=== PATIENT | male | born 1970 | race Caucasian/White ===

== ENCOUNTER 2016-05-26 10:14 | Inpatient (IN) ==
--- NOTE | 2016-05-26 11:57 | General Surg History&Physical ---
Date of Encounter: 05/26/16 Time of Encounter: 11:50 Assessment and Plan (1) Abnormal abdominal CT scan Current Visit: Yes Status: Acute The assessment and plan as outlined above was discussed with the patient and/or family members who expressed understanding and agreement. All questions were answered. The patient has acute abdomen associated with CAT scan findings of closed loop bowel obstruction with possible small bowel necrosis plan we will take him to the operating room on an emergent basis. We will plan exploratory laparotomy with possible small bowel resection. History of Present Illness Chief complaint: Severe abdominal pain HPI: Mr. Guerra is a 45 year old male Acute onset abdominal pain this morning. He has never had a pain episode like this. He has not previously had abdominal surgery. Soon after the onset of acute abdominal pain he developed profound nausea and vomiting. He sought evaluation in the emergency department. A CAT scan was obtained and demonstrated a closed loop obstruction of the small bowel with prominent edema in the closed loop segment. Findings are consistent with bowel necrosis or high -grade obstruction with vascular obstruction. He presents for emergent exploratory laparotomy. Past Med Surg Social Fam HX - Past Medical History Medical history: diabetes, hyperlipidemia Psychiatric history: no psych history - Past Surgical History Surgical History: no surgical history - Social History Smoking Status: Current every day smoker Packs per day: 1 Smokeless Tobacco Status: No Alcohol use: none Drug use: none Medications and Allergies Metformin [Glucophage] 500 mg PO BIDWM 12/14/15 [History] Omeprazole [PriLOSEC] 20 mg PO DAILY 12/14/15 [History] HydrOXYzine Pamoate [Hydroxyzine Pamoate] 25 - 50 mg PO Q6HR PRN #20 capsule [Rx] PredniSONE 40 mg PO DAILY #10 tablet 03/20/16 [Rx] Allergies No Known Allergies Allergy (Verified 05/26/16 08:52) Review of Systems All systems PM: reviewed and no additional remarkable complaints except as stated All systems PM: A 10-system review of systems was performed and is negative for pertinent findings except as documented above in the HPI. The patient is positive for personal history of hyperglycemia and intermittent breathing problems. He does not currently have breathing problems or dyspnea he specifically denies infectious disorder such as HIV hepatitis or tuberculosis. General Surgery Exam Initial Vital Signs Temp Pulse Resp BP Pulse Ox 97.5 F L 43 16 142/91 100 05/26/16 11:35 05/26/16 11:35 02/04/17 11:35 05/26/16 11:35 05/26/16 11:35 - General physical appearance well developed, well nourished, no distress - Neck no masses, no bruits, trachea midline, no lymphadectomy, no venous distension - Respiratory normal expansion, normal respiratory effort, clear to percussion, clear to auscultation - Cardiovascular Cardiovascular exam: Present: RRR, 15, 16 - Abdomen Abdomen general surgery: Present: tender (The patient has guarding and rebound tenderness.) Abdominal Tenderness: Present: diffusely Results - Labs All other labs normal. - Imaging CT scan - abdomen: image reviewed (I personally reviewed the CAT scan. The patient has a closed loop obstruction of the mid small bowel with tremendous edema and inflammation consistent with high-grade bowel obstruction or necrosis. )
[2016-05-26] MEDS ORDERED: *HR* HYDROmorphone (PF) 1 MG/ML SYRINGE ONE (12:01)
[2016-05-26] MEDS ORDERED: *HR* HYDROmorphone (PF) 1 MG/ML SYRINGE IVP PRN (12:02)
[2016-05-26] MEDS ORDERED: Ipratropium/Albuterol Neb 3 ML IH PRN ×2 (12:03→18:06)
--- NOTE | 2016-05-26 14:13 | Anesthesia Evaluation PreOp ---
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 HX Other Medical History: Diabetes Type II, GERD Anesthesia History: Past Anesthesia (no prior surgery) Alcohol Use: none Drug use: none Medications and Allergies Metformin [Glucophage] 500 mg PO BID 12/14/15 [History] Cyclobenzaprine [Flexeril] 10 mg PO TID PRN 05/26/16 [History] Lansoprazole [Prevacid] 30 mg PO DAILY 05/26/16 [History] Lovastatin 10 mg PO DAILY 05/26/16 [History] Melatonin/Pyridoxine HCl (B6) [Melatonin 3 mg Tablet] 3 mg PO HS PRN 05/26/16 [ History] Allergies No Known Allergies Allergy (Verified 05/26/16 08:52) - Meds/Allergy Pre-op Review Medications Reviewed: Yes Allergies Reviewed: Yes Beta Blockers on Current Med List: No Anesthesia Results - Labs Laboratory Tests 05/26/16 05/26/16 09:28 09:28 WBC 20.8 H Hgb 18.7 H Hct 54.6 H Plt Count 253 Sodium 142 Potassium 3.7 BUN 18 Creatinine 1.25 - Imaging EKG: report reviewed (05/26/2016 SB, possible LAE) Anesthesia Exam Vital Signs/O2 Sat/Glucose, Most Recent Temp Pulse Resp BP Pulse Ox 97.5 F L 43 16 142/91 100 05/26/16 11:35 05/26/16 11:35 05/26/16 11:35 05/26/16 11:35 05/26/16 11:35 Blood Glucose* 111 Height: 5'7''/1.7 m Weight: 145 lbs/65.77 kg NPO (# of Hours): 8 Pain Scale: 10 Pain Scale Used: Numeric (1 - 10) - HEENT Pupil (Motor): EOMI Mallampati: II Teeth: Normal Oral Opening: Greater than 3 - 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
[2016-05-26] MEDS ORDERED: Albuterol 2.5 MG/3 ML NEBULIZER IH ONE (14:15)
[2016-05-26] MEDS ORDERED: CefOXitin 1,000 MG VIAL ONE (15:33)
--- NOTE | 2016-05-26 16:17 | Operative Note ---
Date of procedure: 05/26/16 Pre-op diagnosis: Acute abdomen, abnormal CAT scan Post-op diagnosis: other (Necrosis of 70 cm of small bowel) Procedure: #1 small bowel resection, 75 cm. #2 appendectomy Anesthesia: YARY Surgeon: Yan Robin Estimated blood loss (cc): 150 Specimen: #1 75 cm of small bowel, #2 appendix Condition: stable Disposition: PACU Procedure in Detail: After informed consent the patient was taken to the major operative suite placed in the supine position given adequate general anesthetic. The abdomen is prepped and draped in sterile fashion utilizing ChloraPrep standard draping techniques. Timeout was taken patient was identified. Made a vertical midline incision and open the abdomen. The abdomen was completely filled with hemorrhagic inflammatory fluid. I suctioned 400 mL of inflammatory fluid. The small bowel was somewhat fixed down in the pelvis but easily mobilized to the midline incision. It was immediately evident that there was 70 cm of necrotic small bowel that looked carefully there was a constricted area at the distal end of the area of necrosis consistent with an adhesive band or internal hernia. I mapped out the areas of resection. I divided the small bowel proximally and distally at viable bowel segments. Then divided the mesentery with clamps and hemostatic ligatures using silk. I then created a dirty field as is per routine and performed a functional end-to-end anastomosis using 1 load of DESIRE and a load of TA 60 paras to close the enterotomy. I then circumferentially reinforced the staple line with interrupted 3-0 silk seromuscular stitches and closed the mesenteric defect with interrupted figure- of-eight 30 stitches. This gave an excellent technical result. Bleeding was minimal. Estimated blood loss including the blood in the inflammatory fluid was 150 mL I then ran the small bowel from proximal to distal. The distal ileum was entrapped in the pelvis and avoided. To be adhesions down the pelvis. These were completely lysed and the distal ileum was mobilized. It is likely that it was part of this adhesive complex of the pelvis that created the adhesive band and internal hernia that necrosis the small bowel. Once this was done it was noted that the appendix was easily accessible. I decided to resect the appendix in case there were future abdominal pain episodes. I divided the mesoappendix with clamps and hemostatic ligatures. The appendix was divided with a TA 60 across the base of the cecum. This gave an excellent technical result. I irrigated the abdomen with copious amounts of antibiotic containing solution. I closed the midline with looped 0 PDS and the skin with Vicryl and skin clips. He tolerated the procedure well. Monzon catheter was placed at the conclusion of the procedure to closely monitor urinary output because of the degree of inflammatory fluid, fluid shift, and small bowel resection volume.
[2016-05-26] MEDS: *HR* HYDROmorphone (PF) 1 MG/ML SYRINGE IVP PRN ×5 (16:21→20:08)
--- NOTE | 2016-05-26 17:11 | Anesthesia Evaluation Post Op ---
Date of Encounter: 05/26/16 Time of Encounter: 17:11 - Vital Signs Vital Signs: Vital Signs/O2 Sat, Most Current Temp Pulse Resp BP Pulse Ox 100.0 F H 63 16 141/87 94 L 05/26/16 16:46 05/26/16 16:56 05/26/16 16:56 05/26/16 16:56 05/26/16 16:56 - Lungs Lungs: Clear Ascult./Percussion - Airway Airway: Non-obstructed - Cardiovascular Regular Rate - Mental Status Mental Status: Asleep with brisk response to light stimulation - Pain Pain Scale: 8 Pain Scale used: Numeric (1 - 10) - Nausea Vomiting Nausea Vomiting: Not Present - Hydration Hydration: NPO, Monzon catheter - Discharge PostOp Status: Transfer Patient to floor
[2016-05-26] MEDS ORDERED: *HR* Dextrose 50 % in Water (Syg) 50 ML SYRINGE IVP PRN (18:06)
[2016-05-26] MEDS ORDERED: Ondansetron 4 MG/2 ML VIAL IVP PRN (18:06)
[2016-05-26] MEDS ORDERED: Dextrose Gel 15 GM PO PRN ×2 (18:06)
[2016-05-26] MEDS ORDERED: D5% in Water 1,000 ML IV PRN (18:06)
[2016-05-26] MEDS ORDERED: *HR* Metoprolol 5 MG/5 ML VIAL IVP PRN (18:06)
[2016-05-26] MEDS: Insulin LISPRO 300 UNITS/3 ML VIAL SQ SCH (18:56)
[2016-05-26] MEDS: D5% in Lactated Ringers 1,000 ML IVC SCH (19:45)
[2016-05-26] MEDS: *HR* Heparin 5,000 UNIT/ML VIAL SQ SCH (19:46)
[2016-05-26] MEDS: cefOXitin 2,000 MG in D5% in Water (Mini-Bag+) 100 ML IVPB SCH (23:52)
[2016-05-27] MEDS: *HR* HYDROmorphone (PF) 1 MG/ML SYRINGE IVP PRN ×11 (00:02→23:46)
[2016-05-27] MEDS: Insulin LISPRO 300 UNITS/3 ML VIAL SQ SCH ×4 (00:06→17:59)
[2016-05-27 04:34] LABS: Basophils % 0.2 %; Eosinophils % 0.1 %; Hematocrit 48.6 % (37.5-50.1); Hemoglobin 16.1 g/dL (12.9-16.9); Immature Granulocytes % 0.4 % (0-4); Lymphocytes # 2.2 K/mcL (0.6-4.6); Lymphocytes % 13.5 %; Mean Corpuscular HGB Conc 33.1 g/dL (31.6-35.5); Mean Corpuscular Hemoglobin 27.9 pg (28.0-33.3); Mean Corpuscular Volume 84.2 fL (83.0-100.0); Mean Platelet Volume 11.2 fL (9.4-12.4); Monocytes # 1.7 K/mcL (0.0-1.3); Monocytes % 10.8 %; Neutrophils # 12.1 K/mcL (1.6-8.9); Platelet Count 198 K/mcL (140-400); Red Blood Count 5.77 M/mcL (4.19-5.50); Red Cell Distribution Width 13.3 % (11.5-14.5)
[2016-05-27 04:47] LABS: BUN/Creatinine Ratio 14 (6-26); Blood Urea Nitrogen 13 mg/dL (8-26); Calcium 8.7 mg/dL (8.6-10.8); Carbon Dioxide 22 mEq/L (19-29); Chloride 107 mEq/L (98-109); Glucose 136 mg/dL (70-99); Osmolality,Calculated 288 (280-300); Potassium 4.1 mEq/L (3.5-4.5); Sodium 138 mEq/L (136-145); eGFR For African Americans > 60 (> 60); eGFR For Non-African Americans > 60 (> 60)
[2016-05-27] MEDS: D5% in Lactated Ringers 1,000 ML IVC SCH ×3 (05:52→23:46)
[2016-05-27] MEDS: *HR* Heparin 5,000 UNIT/ML VIAL SQ SCH ×2 (05:52→18:12)
[2016-05-27] MEDS: cefOXitin 2,000 MG in D5% in Water (Mini-Bag+) 100 ML IVPB SCH (08:03)
[2016-05-27] MEDS: Pantoprazole 40 MG VIAL IVP SCH (08:03)
--- NOTE | 2016-05-27 10:54 | General Surgery Progress Note ---
Date of Encounter: 05/27/16 Time of Encounter: 10:30 - Assessment and Plan (1) Abnormal abdominal CT scan Current Visit: Yes Status: Acute (2) Small bowel obstruction Current Visit: No Status: Acute The patient underwent resection of 75 cm of necrotic small bowel. 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 He had primary anastomosis. Appendectomy was performed. He is doing well today. There is minimal nasogastric tube drainage. We will plan on ambulation. Continue supportive care and IV hydration. Subjective Narrative: The patient is doing well postoperative day 1 from small bowel resection. He had 75 cm of small bowel resected. The small bowel had necrosis secondary to venous thrombosis from an adhesive band. His nasogastric tube drainage is minimal he has no bowel sounds. His pain is under good control. Objective Vital Signs - Last 8 Hours Temp Pulse Resp BP Pulse Ox 05/27/16 04:52 98.7 F 54 12 144/81 95 Intake and Output 05/26/16 05/27/16 05/27/16 23:59 07:59 15:59 Intake Total 485 / 485 615 / 615 Output Total 475 / 475 575 / 575 0 / 0 Balance 10 / 10 40 / 40 0 / 0 Intake: IV Fluids 485 / 485 615 / 615 D5% & Lact. Ringers 1000 485 / 485 515 / 515 Ml Bag 1,000 ML @ 125 mls /hr IVC .Q8H VIGNESH Rx#: [id number] Mefoxin 2,000 MG In 100 / 100 Dextrose 5% (Minibag+) 100 ML 100 ML @ 200 mls/ hr IVPB Q8HR VIGNESH Rx#: [id number] Oral 0 / 0 Output: Estimated Blood Loss 150 / 150 Urine Amount (Catheter) 200 / 200 Catheter 125 / 125 575 / 575 Gastric Drainage 0 / 0 0 / 0 Left Nare 0 / 0 Other: Meal NPO Percent of Meal Consumed 0% # Bowel Movements 0 Weight 66.361 kg Blood Glucose* 123 144 Patient Weight 05/27/16 23:59 Weight 66.361 kg - General physical appearance well developed, well nourished - Respiratory normal expansion, normal respiratory effort, clear to percussion, clear to auscultation - Cardiovascular Cardiovascular exam: Present: RRR, no murmurs/rubs/gallops - Abdomen Abdomen: Present: soft, non tender (No bowel sounds) - Incision Incision: Present: clean and dry - Labs 05/27/16 04:20 05/27/16 04:20 Diabetes panel 05/27/16 Range/Units 04:20 Sodium 138 (136-145) mEq/L Potassium 4.1 (3.5-4.5) mEq/L Chloride 107 (98-109) mEq/L Carbon Dioxide 22 (19-29) mEq/L BUN 13 (8-26) mg/dL Creatinine 0.93 (0.72-1.25) mg/dL Glucose 136 H (70-99) mg/dL Calcium 8.7 (8.6-10.8) mg/dL Calcium panel 05/27/16 Range/Units 04:20 Calcium 8.7 (8.6-10.8) mg/dL Pituitary panel 05/27/16 Range/Units 04:20 Sodium 138 (136-145) mEq/L Potassium 4.1 (3.5-4.5) mEq/L Chloride 107 (98-109) mEq/L Carbon Dioxide 22 (19-29) mEq/L BUN 13 (8-26) mg/dL Creatinine 0.93 (0.72-1.25) mg/dL Glucose 136 H (70-99) mg/dL Calcium 8.7 (8.6-10.8) mg/dL Adrenal panel 05/27/16 Range/Units 04:20 Sodium 138 (136-145) mEq/L Potassium 4.1 (3.5-4.5) mEq/L Chloride 107 (98-109) mEq/L Carbon Dioxide 22 (19-29) mEq/L BUN 13 (8-26) mg/dL Creatinine 0.93 (0.72-1.25) mg/dL Glucose 136 H (70-99) mg/dL Calcium 8.7 (8.6-10.8) mg/dL - VTE Documentation of Mechanical Device: Intermittent pneumatic compression device Consult Discharge Plan - Plan Referrals: NO,PCP [Primary Care Provider] -
[2016-05-28] MEDS: Insulin LISPRO 300 UNITS/3 ML VIAL SQ SCH ×5 (00:25→23:40)
[2016-05-28 04:07] LABS: Basophils # 0.1 K/mcL (0.0-0.2); Basophils % 0.3 %; Eosinophils % 0.1 %; Hematocrit 45.2 % (37.5-50.1); Hemoglobin 14.7 g/dL (12.9-16.9); Immature Granulocytes % 0.5 % (0-4); Lymphocytes # 1.6 K/mcL (0.6-4.6); Lymphocytes % 10.7 %; Mean Corpuscular HGB Conc 32.5 g/dL (31.6-35.5); Mean Corpuscular Hemoglobin 28.1 pg (28.0-33.3); Mean Corpuscular Volume 86.3 fL (83.0-100.0); Mean Platelet Volume 11.1 fL (9.4-12.4); Monocytes # 1.7 K/mcL (0.0-1.3); Neutrophils # 11.8 K/mcL (1.6-8.9); Platelet Count 163 K/mcL (140-400); Red Blood Count 5.24 M/mcL (4.19-5.50); Red Cell Distribution Width 13.3 % (11.5-14.5); Segmented Neutrophils % 77.4 %
[2016-05-28] MEDS: *HR* HYDROmorphone (PF) 1 MG/ML SYRINGE IVP PRN ×9 (04:07→23:41)
[2016-05-28 04:22] LABS: BUN/Creatinine Ratio 10 (6-26); Blood Urea Nitrogen 9 mg/dL (8-26); Carbon Dioxide 30 mEq/L (19-29); Chloride 100 mEq/L (98-109); Glucose 122 mg/dL (70-99); Osmolality,Calculated 286 (280-300); Potassium 3.8 mEq/L (3.5-4.5); Sodium 138 mEq/L (136-145); eGFR For African Americans > 60 (> 60); eGFR For Non-African Americans > 60 (> 60)
[2016-05-28] MEDS: *HR* Heparin 5,000 UNIT/ML VIAL SQ SCH ×2 (06:45→18:14)
[2016-05-28] MEDS: D5% in Lactated Ringers 1,000 ML IVC SCH ×3 (08:08→23:43)
[2016-05-28] MEDS: Pantoprazole 40 MG VIAL IVP SCH (08:57)
--- NOTE | 2016-05-28 09:52 | General Surgery Progress Note ---
<Gilmar Ramirez - Last Filed: 05/29/16 07:55> Date of Encounter: 05/28/16 Time of Encounter: 15:00 - Assessment and Plan (1) Small bowel obstruction Current Visit: No Status: Acute POD #2 s/p resection of 75 cm of necrotic small bowel. NG to LIWS NPO with bowel rest, awaiting return of bowel function. IV fluids @ 125cc/hr Supportive care/pain control (4) Diabetes mellitus Current Visit: Yes Status: Chronic low intensity corrective SSI Q6H while NPO Qualifiers: Diabetes mellitus type: type 2 (5) HLD (hyperlipidemia) Current Visit: Yes Status: Chronic (6) DVT prophylaxis Current Visit: Yes Status: Acute Heparin 5,000 units Q12H for DVT prophylaxis. Subjective Patient reports: no new complaints, still having pain, no flatus, no bowel movement, afebrile (elevated at 100.1 max temp.) Objective Vital Signs - Last 8 Hours Temp Pulse Resp BP Pulse Ox 05/28/16 06:29 98.0 F 61 16 144/88 95 05/28/16 03:47 100.0 F H 64 16 136/83 93 L Intake and Output 05/27/16 05/28/16 05/28/16 23:59 07:59 15:59 Intake Total 1000 / 1000 543 / 543 457 / 457 Output Total 400 / 400 950 / 950 Balance 600 / 600 -407 / -407 457 / 457 Intake: IV Fluids 1000 / 1000 543 / 543 457 / 457 D5% & Lact. Ringers 1000 1000 / 1000 543 / 543 457 / 457 Ml Bag 1,000 ML @ 125 mls /hr IVC .Q8H VIGNESH Rx#: [id number] Oral 0 / 0 0 / 0 Output: Catheter 400 / 400 725 / 725 Gastric Drainage 0 / 0 225 / 225 Left Nare 0 / 0 0 / 0 Other: Meal NPO # Bowel Movements 0 Weight 66.3 kg Blood Glucose* 116 120 Patient Weight 05/28/16 23:59 Weight 66.3 kg - General physical appearance well developed, well nourished, moderate pain - Eyes normal ocular movement - ENT normal mucosa, atraumatic, normocephalic - Neck Neck exam: trachea midline - Respiratory normal respiratory effort, clear to auscultation - Cardiovascular Cardiovascular exam: Present: RRR - Abdomen Abdomen: Present: soft, wound (NG to LIWS (with 225ml noted since midnight)). Absent: bowel sounds present - Incision Incision: Present: clean and dry - Integumentary no rash - Neurologic CN 2-12 grossly intact - Psychiatric oriented to time, oriented to person, oriented to place, speech is normal, memory intact - Labs 05/29/16 05:11 05/29/16 05:11 Diabetes panel 05/28/16 Range/Units 03:53 Sodium 138 (136-145) mEq/L Potassium 3.8 (3.5-4.5) mEq/L Chloride 100 (98-109) mEq/L Carbon Dioxide 30 H (19-29) mEq/L BUN 9 (8-26) mg/dL Creatinine 0.93 (0.72-1.25) mg/dL Glucose 122 H (70-99) mg/dL Calcium 9.0 (8.6-10.8) mg/dL Calcium panel 05/28/16 Range/Units 03:53 Calcium 9.0 (8.6-10.8) mg/dL Pituitary panel 05/28/16 Range/Units 03:53 Sodium 138 (136-145) mEq/L Potassium 3.8 (3.5-4.5) mEq/L Chloride 100 (98-109) mEq/L Carbon Dioxide 30 H (19-29) mEq/L BUN 9 (8-26) mg/dL Creatinine 0.93 (0.72-1.25) mg/dL Glucose 122 H (70-99) mg/dL Calcium 9.0 (8.6-10.8) mg/dL Adrenal panel 05/28/16 Range/Units 03:53 Sodium 138 (136-145) mEq/L Potassium 3.8 (3.5-4.5) mEq/L Chloride 100 (98-109) mEq/L Carbon Dioxide 30 H (19-29) mEq/L BUN 9 (8-26) mg/dL Creatinine 0.93 (0.72-1.25) mg/dL Glucose 122 H (70-99) mg/dL Calcium 9.0 (8.6-10.8) mg/dL - VTE Documentation of Mechanical Device: Intermittent pneumatic compression device Consult Discharge Plan - Plan Referrals: NO,PCP [Primary Care Provider] - <Yan Robin - Last Filed: 05/30/16 07:46> - Assessment and Plan (1) Abnormal abdominal CT scan Current Visit: Yes Status: Acute (2) Small bowel obstruction Current Visit: Yes Status: Acute Objective Vital Signs - Last 8 Hours Temp Pulse Resp BP Pulse Ox 05/30/16 07:00 98.2 F 75 16 128/82 94 L 05/30/16 04:03 98.0 F 69 18 121/80 94 L 05/29/16 23:55 98.1 F 65 18 117/62 94 L Intake and Output 05/29/16 05/29/16 05/30/16 15:59 23:59 07:59 Intake Total 0 / 0 1000 / 1000 0 / 0 Output Total 800 / 800 700 / 700 400 / 400 Balance -800 / -800 300 / 300 -400 / -400 Intake: IV Fluids 1000 / 1000 0 / 0 D5% & Lact. Ringers 1000 1000 / 1000 0 / 0 Ml Bag 1,000 ML @ 125 mls /hr IVC .Q8H VIGNESH Rx#: [id number] Oral 0 / 0 0 / 0 0 / 0 Output: Catheter 650 / 650 550 / 550 150 / 150 Gastric Drainage 150 / 150 150 / 150 250 / 250 Other: Meal NPO NPO Percent of Meal Consumed 0% 0% # Bowel Movements 0 Weight 66.3 kg Blood Glucose* 117 92 102 Patient Weight 05/30/16 23:59 Weight 66.3 kg - Labs 05/30/16 05:10 05/30/16 05:10 Diabetes panel 05/30/16 Range/Units 05:10 Sodium 139 (136-145) mEq/L Potassium 3.3 L (3.5-4.5) mEq/L Chloride 103 (98-109) mEq/L Carbon Dioxide 27 (19-29) mEq/L BUN 9 (8-26) mg/dL Creatinine 0.77 (0.72-1.25) mg/dL Glucose 106 H (70-99) mg/dL Calcium 8.9 (8.6-10.8) mg/dL Calcium panel 05/30/16 Range/Units 05:10 Calcium 8.9 (8.6-10.8) mg/dL Pituitary panel 05/30/16 Range/Units 05:10 Sodium 139 (136-145) mEq/L Potassium 3.3 L (3.5-4.5) mEq/L Chloride 103 (98-109) mEq/L Carbon Dioxide 27 (19-29) mEq/L BUN 9 (8-26) mg/dL Creatinine 0.77 (0.72-1.25) mg/dL Glucose 106 H (70-99) mg/dL Calcium 8.9 (8.6-10.8) mg/dL Adrenal panel 05/30/16 Range/Units 05:10 Sodium 139 (136-145) mEq/L Potassium 3.3 L (3.5-4.5) mEq/L Chloride 103 (98-109) mEq/L Carbon Dioxide 27 (19-29) mEq/L BUN 9 (8-26) mg/dL Creatinine 0.77 (0.72-1.25) mg/dL Glucose 106 H (70-99) mg/dL Calcium 8.9 (8.6-10.8) mg/dL - Attending Attestation I examined this patient and my medical decision-making was reviewed with the BIOLOGY DEPARTMENT CHAIR/PA/Advanced Practice Nurse/Resident Physician. I agree with the documented findings, disposition and treatment plan as described except to the extent set forth below. Yan Robin MD FACS
[2016-05-29] MEDS: *HR* HYDROmorphone (PF) 1 MG/ML SYRINGE IVP PRN ×7 (04:50→22:46)
[2016-05-29 05:35] LABS: Basophils # 0.1 K/mcL (0.0-0.2); Basophils % 0.4 %; Eosinophils # 0.1 K/mcL (0.0-0.6); Eosinophils % 0.4 %; Hematocrit 40.1 % (37.5-50.1); Hemoglobin 13.7 g/dL (12.9-16.9); Immature Granulocytes % 0.4 % (0-4); Lymphocytes # 1.6 K/mcL (0.6-4.6); Lymphocytes % 13.5 %; Mean Corpuscular HGB Conc 34.2 g/dL (31.6-35.5); Mean Corpuscular Hemoglobin 28.8 pg (28.0-33.3); Mean Corpuscular Volume 84.2 fL (83.0-100.0); Mean Platelet Volume 11.3 fL (9.4-12.4); Monocytes % 8.5 %; Platelet Count 137 K/mcL (140-400); Red Blood Count 4.76 M/mcL (4.19-5.50); Red Cell Distribution Width 12.7 % (11.5-14.5); Segmented Neutrophils % 76.8 %
[2016-05-29] MEDS: Insulin LISPRO 300 UNITS/3 ML VIAL SQ SCH ×3 (05:44→18:04)
[2016-05-29 05:49] LABS: BUN/Creatinine Ratio 8 (6-26); Blood Urea Nitrogen 6 mg/dL (8-26); Calcium 9.1 mg/dL (8.6-10.8); Carbon Dioxide 28 mEq/L (19-29); Chloride 101 mEq/L (98-109); Glucose 113 mg/dL (70-99); Osmolality,Calculated 286 (280-300); Potassium 3.4 mEq/L (3.5-4.5); Sodium 139 mEq/L (136-145); eGFR For African Americans > 60 (> 60); eGFR For Non-African Americans > 60 (> 60)
[2016-05-29] MEDS: *HR* Heparin 5,000 UNIT/ML VIAL SQ SCH ×2 (06:04→18:09)
[2016-05-29] MEDS: D5% in Lactated Ringers 1,000 ML IVC SCH ×2 (07:58→17:32)
--- NOTE | 2016-05-29 07:59 | General Surgery Progress Note ---
<Gilmar Ramirez - Last Filed: 05/29/16 07:56> Date of Encounter: 05/29/16 Time of Encounter: 07:40 - Assessment and Plan (1) Small bowel obstruction Current Visit: No Status: Acute POD #3 s/p resection of 75 cm of necrotic small bowel. NG to LIWS NPO with bowel rest, awaiting return of bowel function. IV fluids @ 125cc/hr Supportive care/pain control (2) Postoperative ileus Current Visit: Yes Status: Acute Expected post-op ileus. NPO with bowel rest. See plan above. (4) Diabetes mellitus Current Visit: Yes Status: Chronic Low intensity corrective SSI Q6H while NPO Qualifiers: Diabetes mellitus type: type 2 Diabetes mellitus complication status: without complication Diabetes mellitus fpc insulin use: without fpc use Qualified Code(s): E11.9 - Type 2 diabetes mellitus without complications (5) HLD (hyperlipidemia) Current Visit: Yes Status: Chronic Qualifiers: Hyperlipidemia type: unspecified Qualified Code(s): E78.5 - Hyperlipidemia , unspecified (6) DVT prophylaxis Current Visit: Yes Status: Acute Heparin 5,000 units Q12H for DVT prophylaxis. Subjective Patient reports: no new complaints, feels better, still having pain, no flatus, no bowel movement, afebrile (max temp 100.1) Objective Vital Signs - Last 8 Hours Temp Pulse Resp BP Pulse Ox 05/29/16 04:50 98.2 F 79 16 153/93 94 L Intake and Output 05/28/16 05/28/16 05/29/16 15:59 23:59 07:59 Intake Total 457 / 457 1999 0 / 0 Output Total 775 / 775 1300 / 1300 1150 / 1150 Balance -318 / -318 700 / 700 -1150 / -1150 Intake: IV Fluids 457 / 457 1999 / 1999 D5% & Lact. Ringers 1000 457 / 457 1999 / 1999 Ml Bag 1,000 ML @ 125 mls /hr IVC .Q8H VIGNESH Rx#: [id number] Oral 0 / 0 0 / 0 0 / 0 Output: Catheter 775 / 775 1300 / 1300 950 / 950 Gastric Drainage 0 / 0 0 / 0 200 / 200 Left Nare 0 / 0 0 / 0 Other: Meal NPO Percent of Meal Consumed 0% # Bowel Movements 0 0 Weight 66.3 kg Blood Glucose* 116 103 122 Patient Weight 05/29/16 23:59 Weight 66.3 kg - General physical appearance well developed, well nourished, no distress - Eyes normal ocular movement - ENT normal mucosa, atraumatic, normocephalic - Neck Neck exam: trachea midline - Respiratory normal respiratory effort, clear to auscultation - Cardiovascular Cardiovascular exam: Present: RRR - Abdomen Abdomen: Present: soft, tender, wound (NG to LIWS (200ml noted since midnight)) - Incision Incision: Present: clean and dry, intact - Integumentary no rash - Neurologic CN 2-12 grossly intact - Psychiatric oriented to time, oriented to person, oriented to place, speech is normal, memory intact - Labs 05/29/16 05:11 05/29/16 05:11 Diabetes panel 05/29/16 Range/Units 05:11 Sodium 139 (136-145) mEq/L Potassium 3.4 L (3.5-4.5) mEq/L Chloride 101 (98-109) mEq/L Carbon Dioxide 28 (19-29) mEq/L BUN 6 L (8-26) mg/dL Creatinine 0.79 (0.72-1.25) mg/dL Glucose 113 H (70-99) mg/dL Calcium 9.1 (8.6-10.8) mg/dL Calcium panel 05/29/16 Range/Units 05:11 Calcium 9.1 (8.6-10.8) mg/dL Pituitary panel 05/29/16 Range/Units 05:11 Sodium 139 (136-145) mEq/L Potassium 3.4 L (3.5-4.5) mEq/L Chloride 101 (98-109) mEq/L Carbon Dioxide 28 (19-29) mEq/L BUN 6 L (8-26) mg/dL Creatinine 0.79 (0.72-1.25) mg/dL Glucose 113 H (70-99) mg/dL Calcium 9.1 (8.6-10.8) mg/dL Adrenal panel 05/29/16 Range/Units 05:11 Sodium 139 (136-145) mEq/L Potassium 3.4 L (3.5-4.5) mEq/L Chloride 101 (98-109) mEq/L Carbon Dioxide 28 (19-29) mEq/L BUN 6 L (8-26) mg/dL Creatinine 0.79 (0.72-1.25) mg/dL Glucose 113 H (70-99) mg/dL Calcium 9.1 (8.6-10.8) mg/dL - VTE Documentation of Mechanical Device: Intermittent pneumatic compression device Consult Discharge Plan - Plan Referrals: NO,PCP [Primary Care Provider] - <Yan Robin - Last Filed: 05/30/16 07:45> - Assessment and Plan (1) Abnormal abdominal CT scan Current Visit: Yes Status: Acute (2) Small bowel obstruction Current Visit: Yes Status: Acute Objective Vital Signs - Last 8 Hours Temp Pulse Resp BP Pulse Ox 05/30/16 07:00 98.2 F 75 16 128/82 94 L 05/30/16 04:03 98.0 F 69 18 121/80 94 L 05/29/16 23:55 98.1 F 65 18 117/62 94 L Intake and Output 05/29/16 05/29/16 05/30/16 15:59 23:59 07:59 Intake Total 0 / 0 1000 / 1000 0 / 0 Output Total 800 / 800 700 / 700 400 / 400 Balance -800 / -800 300 / 300 -400 / -400 Intake: IV Fluids 1000 / 1000 0 / 0 D5% & Lact. Ringers 1000 1000 / 1000 0 / 0 Ml Bag 1,000 ML @ 125 mls /hr IVC .Q8H VIGNESH Rx#: [id number] Oral 0 / 0 0 / 0 0 / 0 Output: Catheter 650 / 650 550 / 550 150 / 150 Gastric Drainage 150 / 150 150 / 150 250 / 250 Other: Meal NPO NPO Percent of Meal Consumed 0% 0% # Bowel Movements 0 Weight 66.3 kg Blood Glucose* 117 92 102 Patient Weight 05/30/16 23:59 Weight 66.3 kg - Labs 05/30/16 05:10 05/30/16 05:10 Diabetes panel 05/30/16 Range/Units 05:10 Sodium 139 (136-145) mEq/L Potassium 3.3 L (3.5-4.5) mEq/L Chloride 103 (98-109) mEq/L Carbon Dioxide 27 (19-29) mEq/L BUN 9 (8-26) mg/dL Creatinine 0.77 (0.72-1.25) mg/dL Glucose 106 H (70-99) mg/dL Calcium 8.9 (8.6-10.8) mg/dL Calcium panel 05/30/16 Range/Units 05:10 Calcium 8.9 (8.6-10.8) mg/dL Pituitary panel 05/30/16 Range/Units 05:10 Sodium 139 (136-145) mEq/L Potassium 3.3 L (3.5-4.5) mEq/L Chloride 103 (98-109) mEq/L Carbon Dioxide 27 (19-29) mEq/L BUN 9 (8-26) mg/dL Creatinine 0.77 (0.72-1.25) mg/dL Glucose 106 H (70-99) mg/dL Calcium 8.9 (8.6-10.8) mg/dL Adrenal panel 05/30/16 Range/Units 05:10 Sodium 139 (136-145) mEq/L Potassium 3.3 L (3.5-4.5) mEq/L Chloride 103 (98-109) mEq/L Carbon Dioxide 27 (19-29) mEq/L BUN 9 (8-26) mg/dL Creatinine 0.77 (0.72-1.25) mg/dL Glucose 106 H (70-99) mg/dL Calcium 8.9 (8.6-10.8) mg/dL - Attending Attestation I examined this patient and my medical decision-making was reviewed with the MANAGER OFFICE/PA/Advanced Practice Nurse/Resident Physician. I agree with the documented findings, disposition and treatment plan as described except to the extent set forth below. Yan Robin MD FACS
[2016-05-29] MEDS: Pantoprazole 40 MG VIAL IVP SCH (08:01)
[2016-05-30] MEDS: *HR* HYDROmorphone (PF) 1 MG/ML SYRINGE IVP PRN ×6 (01:54→22:37)
[2016-05-30] MEDS: Insulin LISPRO 300 UNITS/3 ML VIAL SQ SCH ×4 (01:55→18:11)
[2016-05-30] MEDS: D5% in Lactated Ringers 1,000 ML IVC SCH ×5 (01:55→13:47)
[2016-05-30 05:35] LABS: Basophils # 0.1 K/mcL (0.0-0.2); Basophils % 0.9 %; Eosinophils # 0.4 K/mcL (0.0-0.6); Hematocrit 37.7 % (37.5-50.1); Hemoglobin 12.6 g/dL (12.9-16.9); Immature Granulocytes % 0.3 % (0-4); Lymphocytes # 2.2 K/mcL (0.6-4.6); Lymphocytes % 27.9 %; Mean Corpuscular HGB Conc 33.4 g/dL (31.6-35.5); Mean Corpuscular Hemoglobin 27.8 pg (28.0-33.3); Mean Platelet Volume 11.5 fL (9.4-12.4); Monocytes # 0.7 K/mcL (0.0-1.3); Neutrophils # 4.5 K/mcL (1.6-8.9); Platelet Count 145 K/mcL (140-400); Red Blood Count 4.54 M/mcL (4.19-5.50); Red Cell Distribution Width 12.6 % (11.5-14.5); Segmented Neutrophils % 56.9 %
[2016-05-30 05:53] LABS: BUN/Creatinine Ratio 12 (6-26); Blood Urea Nitrogen 9 mg/dL (8-26); Calcium 8.9 mg/dL (8.6-10.8); Chloride 103 mEq/L (98-109); Glucose 106 mg/dL (70-99); Osmolality,Calculated 287 (280-300); Potassium 3.3 mEq/L (3.5-4.5); Sodium 139 mEq/L (136-145); eGFR For African Americans > 60 (> 60); eGFR For Non-African Americans > 60 (> 60)
[2016-05-30 06:05] LABS: Carbon Dioxide 27 mEq/L (19-29)
[2016-05-30] MEDS: *HR* Heparin 5,000 UNIT/ML VIAL SQ SCH ×2 (06:14→18:12)
--- NOTE | 2016-05-30 07:11 | General Surgery Progress Note ---
<Gilmar Ramirez - Last Filed: 05/30/16 09:30> Date of Encounter: 05/30/16 Time of Encounter: 07:05 - Assessment and Plan (1) Small bowel obstruction Current Visit: Yes Status: Acute POD #4 s/p resection of 75 cm of necrotic small bowel. Bowel sounds present on exam and patient has had one bowel movement NG removed, will advance to limited clears (300cc/shift) Discontinue mcmillan catheter Continue with IVFs Continue with supportive care/pain control Ambulate TID (2) Postoperative ileus Current Visit: Yes Status: Acute Expected post-op ileus, resolved Removed NG tube and advace diet as above. (3) Hypokalemia Current Visit: Yes Status: Acute K+ 3.3 today Will replace with 40meq KCl Recheck in am (4) Diabetes mellitus Current Visit: Yes Status: Chronic Controlled. Continue with low intensity corrective SSI Q6H Qualifiers: Diabetes mellitus type: type 2 Diabetes mellitus complication status: without complication Diabetes mellitus group home insulin use: without group home use Qualified Code(s): E11.9 - Type 2 diabetes mellitus without complications (5) HLD (hyperlipidemia) Current Visit: Yes Status: Chronic Qualifiers: Hyperlipidemia type: unspecified Qualified Code(s): E78.5 - Hyperlipidemia , unspecified (6) DVT prophylaxis Current Visit: Yes Status: Acute Continue with Heparin 5,000 units Q12H for DVT prophylaxis. Subjective Patient reports: no new complaints, feels better, pain is less, flatus, bowel movement (one yesterday (05/29)), afebrile, other (No nausea) Objective Vital Signs - Last 8 Hours Temp Pulse Resp BP Pulse Ox 05/30/16 04:03 98.0 F 69 18 121/80 94 L 05/29/16 23:55 98.1 F 65 18 117/62 94 L Intake and Output 05/29/16 05/29/16 05/30/16 15:59 23:59 07:59 Intake Total 0 / 0 1000 / 1000 0 / 0 Output Total 800 / 800 700 / 700 0 / 0 Balance -800 / -800 300 / 300 0 / 0 Intake: IV Fluids 1000 / 1000 0 / 0 D5% & Lact. Ringers 1000 1000 / 1000 0 / 0 Ml Bag 1,000 ML @ 125 mls /hr IVC .Q8H [facility] Rx#: [id number] Oral 0 / 0 0 / 0 0 / 0 Output: Catheter 650 / 650 550 / 550 Gastric Drainage 150 / 150 150 / 150 0 / 0 Other: Meal NPO NPO Percent of Meal Consumed 0% 0% # Bowel Movements 0 Weight 66.3 kg Blood Glucose* 117 92 102 Patient Weight 05/30/16 23:59 Weight 66.3 kg - General physical appearance well developed, well nourished, no distress - Eyes normal ocular movement - ENT normal mucosa - Neck Neck exam: trachea midline - Respiratory normal respiratory effort, clear to auscultation - Cardiovascular Cardiovascular exam: Present: RRR - Abdomen Abdomen: Present: bowel sounds present, wound (NG to LIWS (500ml total output on 05/29/16)(removed today)) - Incision Incision: Present: clean and dry, intact (paras present) - Integumentary no rash - Neurologic CN 2-12 grossly intact - Psychiatric oriented to time, oriented to person, oriented to place - Labs 05/30/16 05:10 05/30/16 05:10 Diabetes panel 05/30/16 Range/Units 05:10 Sodium 139 (136-145) mEq/L Potassium 3.3 L (3.5-4.5) mEq/L Chloride 103 (98-109) mEq/L Carbon Dioxide 27 (19-29) mEq/L BUN 9 (8-26) mg/dL Creatinine 0.77 (0.72-1.25) mg/dL Glucose 106 H (70-99) mg/dL Calcium 8.9 (8.6-10.8) mg/dL Calcium panel 05/30/16 Range/Units 05:10 Calcium 8.9 (8.6-10.8) mg/dL Pituitary panel 05/30/16 Range/Units 05:10 Sodium 139 (136-145) mEq/L Potassium 3.3 L (3.5-4.5) mEq/L Chloride 103 (98-109) mEq/L Carbon Dioxide 27 (19-29) mEq/L BUN 9 (8-26) mg/dL Creatinine 0.77 (0.72-1.25) mg/dL Glucose 106 H (70-99) mg/dL Calcium 8.9 (8.6-10.8) mg/dL Adrenal panel 02/08/17 Range/Units 05:10 Sodium 139 (136-145) mEq/L Potassium 3.3 L (3.5-4.5) mEq/L Chloride 103 (98-109) mEq/L Carbon Dioxide 27 (19-29) mEq/L BUN 9 (8-26) mg/dL Creatinine 0.77 (0.72-1.25) mg/dL Glucose 106 H (70-99) mg/dL Calcium 8.9 (8.6-10.8) mg/dL - VTE Documentation of Mechanical Device: Intermittent pneumatic compression device Consult Discharge Plan - Plan Referrals: NO,PCP [Primary Care Provider] - <Yan Robin - Last Filed: 05/30/16 22:23> - Assessment and Plan (1) Abnormal abdominal CT scan Current Visit: Yes Status: Acute (2) Small bowel obstruction Current Visit: Yes Status: Acute Objective Vital Signs - Last 8 Hours Temp Pulse Resp BP Pulse Ox 05/30/16 20:36 98.8 F 69 18 119/74 97 05/30/16 16:00 98.9 F 70 16 123/75 95 Intake and Output 05/30/16 05/30/16 05/30/16 07:59 15:59 23:59 Intake Total 0 / 0 1542 / 1542 120 / 120 Output Total 400 / 400 200 / 200 1000 / 1000 Balance -400 / -400 1342 / 1342 -880 / -880 Intake: IV Fluids 0 / 0 1422 / 1422 D5% & Lact. Ringers 1000 0 / 0 900 / 900 Ml Bag 1,000 ML @ 125 mls /hr IVC .Q8H [facility] Rx#: [id number] KCl 40 MEQ Xylocaine 2 ML 522 / 522 In Dextrose 5% 500 ML @ 130.5 mls/hr IVPB ONCE ONE Rx#:[id number] Oral 0 / 0 120 / 120 120 / 120 Output: Urine 0 / 0 1000 / 1000 Catheter 150 / 150 200 / 200 Gastric Drainage 250 / 250 Other: Meal NPO lunch NPO # Voids 2 Weight 66.3 kg Blood Glucose* 102 111 124 Patient Weight 05/30/16 23:59 Weight 66.3 kg - Labs 05/30/16 05:10 05/30/16 05:10 Diabetes panel 05/30/16 Range/Units 05:10 Sodium 139 (136-145) mEq/L Potassium 3.3 L (3.5-4.5) mEq/L Chloride 103 (98-109) mEq/L Carbon Dioxide 27 (19-29) mEq/L BUN 9 (8-26) mg/dL Creatinine 0.77 (0.72-1.25) mg/dL Glucose 106 H (70-99) mg/dL Calcium 8.9 (8.6-10.8) mg/dL Calcium panel 05/30/16 Range/Units 05:10 Calcium 8.9 (8.6-10.8) mg/dL Pituitary panel 05/30/16 Range/Units 05:10 Sodium 139 (136-145) mEq/L Potassium 3.3 L (3.5-4.5) mEq/L Chloride 103 (98-109) mEq/L Carbon Dioxide 27 (19-29) mEq/L BUN 9 (8-26) mg/dL Creatinine 0.77 (0.72-1.25) mg/dL Glucose 106 H (70-99) mg/dL Calcium 8.9 (8.6-10.8) mg/dL Adrenal panel 05/30/16 Range/Units 05:10 Sodium 139 (136-145) mEq/L Potassium 3.3 L (3.5-4.5) mEq/L Chloride 103 (98-109) mEq/L Carbon Dioxide 27 (19-29) mEq/L BUN 9 (8-26) mg/dL Creatinine 0.77 (0.72-1.25) mg/dL Glucose 106 H (70-99) mg/dL Calcium 8.9 (8.6-10.8) mg/dL - Attending Attestation I examined this patient and my medical decision-making was reviewed with the CAR PIL[employer]/PA/Advanced Practice Nurse/Resident Physician. I agree with the documented findings, disposition and treatment plan as described except to the extent set forth below. Yan Robin MD
[2016-05-30] MEDS ORDERED: Potassium Chloride 40 MEQ, Lidocaine 1% 2 ML in D5% in Water 500 ML IVPB ONE (07:13)
[2016-05-30] MEDS: Pantoprazole 40 MG VIAL IVP SCH (09:24)
[2016-05-31] MEDS: Insulin LISPRO 300 UNITS/3 ML VIAL SQ SCH ×4 (00:45→17:59)
[2016-05-31 04:58] LABS: BUN/Creatinine Ratio 11 (6-26); Blood Urea Nitrogen 9 mg/dL (8-26); Carbon Dioxide 26 mEq/L (19-29); Chloride 104 mEq/L (98-109); Glucose 97 mg/dL (70-99); Osmolality,Calculated 287 (280-300); Potassium 3.5 mEq/L (3.5-4.5); Sodium 139 mEq/L (136-145); eGFR For African Americans > 60 (> 60); eGFR For Non-African Americans > 60 (> 60)
[2016-05-31] MEDS: *HR* HYDROmorphone (PF) 1 MG/ML SYRINGE IVP PRN ×2 (04:58→20:09)
[2016-05-31] MEDS: *HR* Heparin 5,000 UNIT/ML VIAL SQ SCH ×2 (05:46→17:58)
[2016-05-31] MEDS: D5% in Lactated Ringers 1,000 ML IVC SCH (05:46)
--- NOTE | 2016-05-31 08:50 | General Surgery Progress Note ---
<Gilmar Ramirez - Last Filed: 05/31/16 13:56> Date of Encounter: 05/31/16 Time of Encounter: 08:05 - Assessment and Plan (1) Small bowel obstruction Status: Acute POD #5 s/p resection of 75 cm of necrotic small bowel. Bowel sounds present on exam. Tolerated limited clears, advancing to full clears; if tolerating consider advancement to regular diet. Continue with IVFs Continue with supportive care/pain control Ambulate TID (2) Postoperative ileus Status: Acute Expected post-op ileus, improving Advanced diet as above. (3) Hypokalemia Status: Acute K+ 3.5 today Received 40meq KCl yesterday (4) Diabetes mellitus Status: Chronic Controlled. Continue with low intensity corrective SSI Q6H Will likely be able to adjust this as patient is transitioned to full diet. 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 Subjective Patient reports: no new complaints, feels better, still having pain, pain is less, flatus, no bowel movement, afebrile Objective Vital Signs - Last 8 Hours Temp Pulse Resp BP Pulse Ox 05/31/16 07:00 98.1 F 66 14 106/68 95 05/31/16 05:03 98.2 F 73 18 105/66 93 L Intake and Output 05/30/16 05/31/16 05/31/16 23:59 07:59 15:59 Intake Total 1120 / 1120 120 / 120 Output Total 1375 / 1375 200 / 200 Balance -255 / -255 -80 / -80 Intake: IV Fluids 1000 / 1000 D5% & Lact. Ringers 1000 1000 / 1000 Ml Bag 1,000 ML @ 125 mls /hr IVC .Q8H [facility] Rx#: [id number] Oral 120 / 120 120 / 120 Output: Urine 1375 / 1375 200 / 200 Other: Meal NPO NPO w/ 300ml per shift 6-6 # Voids 2 Weight 66.27 kg Blood Glucose* 124 103 Patient Weight 05/31/16 23:59 Weight 66.27 kg - General physical appearance well developed, well nourished, no distress - Eyes normal ocular movement - ENT normal mucosa, atraumatic, normocephalic - Neck Neck exam: trachea midline - Respiratory normal respiratory effort, clear to auscultation - Cardiovascular Cardiovascular exam: Present: RRR - Abdomen Abdomen: Present: bowel sounds present, soft, tender (minimal, expected post- operative) - Incision Incision: Present: clean and dry, intact - Integumentary no rash - Neurologic CN 2-12 grossly intact - Psychiatric oriented to time, oriented to person, oriented to place, speech is normal, memory intact - Labs 05/30/16 05:10 05/31/16 04:22 Diabetes panel 05/31/16 Range/Units 04:22 Sodium 139 (136-145) mEq/L Potassium 3.5 (3.5-4.5) mEq/L Chloride 104 (98-109) mEq/L Carbon Dioxide 26 (19-29) mEq/L BUN 9 (8-26) mg/dL Creatinine 0.84 (0.72-1.25) mg/dL Glucose 97 (70-99) mg/dL Calcium 9.0 (8.6-10.8) mg/dL Calcium panel 05/31/16 Range/Units 04:22 Calcium 9.0 (8.6-10.8) mg/dL Pituitary panel 05/31/16 Range/Units 04:22 Sodium 139 (136-145) mEq/L Potassium 3.5 (3.5-4.5) mEq/L Chloride 104 (98-109) mEq/L Carbon Dioxide 26 (19-29) mEq/L BUN 9 (8-26) mg/dL Creatinine 0.84 (0.72-1.25) mg/dL Glucose 97 (70-99) mg/dL Calcium 9.0 (8.6-10.8) mg/dL Adrenal panel 05/31/16 Range/Units 04:22 Sodium 139 (136-145) mEq/L Potassium 3.5 (3.5-4.5) mEq/L Chloride 104 (98-109) mEq/L Carbon Dioxide 26 (19-29) mEq/L BUN 9 (8-26) mg/dL Creatinine 0.84 (0.72-1.25) mg/dL Glucose 97 (70-99) mg/dL Calcium 9.0 (8.6-10.8) mg/dL - VTE Documentation of Mechanical Device: Intermittent pneumatic compression device Consult Discharge Plan - Plan Instructions: Diabetes Mellitus Type 2 in Adults (DC) Referrals: Yan Robin MD [Partnered Physician] - 06/12/16 11:25 am NO,PCP [Primary Care Provider] - Prescriptions: OxyCODONE/APAP 10/325 [Percocet 10/325 MG] 1 each PO Q6HR PRN #36 tablet PRN Reason: Pain <Yan Robin - Last Filed: 06/01/16 16:31> - Assessment and Plan (1) Abnormal abdominal CT scan Status: Acute (2) Small bowel obstruction Status: Acute Objective Intake and Output 06/01/16 06/01/16 06/01/16 07:59 15:59 23:59 Intake Total 0 / 0 Output Total 250 / 250 Balance -250 / -250 Intake: Oral 0 / 0 Output: Urine 250 / 250 Other: Weight 66.27 kg Blood Glucose* 91 Patient Weight 06/01/16 23:59 Weight 66.27 kg - Labs 05/30/16 05:10 05/31/16 04:22 - Attending Attestation I examined this patient and my medical decision-making was reviewed with the [employer]ENDER [employer]/PA/Advanced Practice Nurse/Resident Physician. I agree with the documented findings, disposition and treatment plan as described except to the extent set forth below. Yan Robin MD
[2016-05-31] MEDS: Pantoprazole 40 MG VIAL IVP SCH (09:58)
[2016-05-31] MEDS ORDERED: 0.9 % Sodium Chloride 1,000 ML IVC SCH (19:45)
[2016-05-31] MEDS ORDERED: Insulin LISPRO 300 UNITS/3 ML VIAL SQ SCH (21:00)
[2016-06-01] MEDS: *HR* HYDROmorphone (PF) 1 MG/ML SYRINGE IVP PRN (03:29)
[2016-06-01] MEDS: *HR* Heparin 5,000 UNIT/ML VIAL SQ SCH (06:35)
[2016-06-01 07:00] VITALS: BP 96/60
[2016-06-01] MEDS ORDERED: Insulin LISPRO 300 UNITS/3 ML VIAL SQ SCH (07:30)
--- NOTE | 2016-06-01 07:43 | Discharge Summary ---
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 He is now completely recovered. - Discharge Medications Prescriptions: OxyCODONE/APAP 10/325 [Percocet 10/325 MG] 1 each PO Q6HR PRN #36 tablet PRN Reason: Pain Home Medications: Metformin [Glucophage] 500 mg PO BID 12/14/15 [History] Cyclobenzaprine [Flexeril] 10 mg PO TID PRN 05/26/16 [History] Lansoprazole [Prevacid] 30 mg PO DAILY 05/26/16 [History] Lovastatin 10 mg PO DAILY 05/26/16 [History] Melatonin/Pyridoxine HCl (B6) [Melatonin 3 mg Tablet] 3 mg PO HS PRN 05/26/16 [ History] OxyCODONE/APAP 10/325 [Percocet 10/325 MG] 1 each PO Q6HR PRN #36 tablet [Rx] Allergies/Adverse Reactions: Allergies No Known Allergies Allergy (Verified 05/26/16 08:52) General Surgery Exam Initial Vital Signs Temp Pulse Resp BP Pulse Ox 97.5 F L 43 16 142/91 100 05/26/16 11:35 05/26/16 11:35 05/26/16 11:35 05/26/16 11:35 05/26/16 11:35 - General physical appearance well developed, well nourished, no distress - Respiratory normal expansion, normal respiratory effort, clear to percussion, clear to auscultation - Cardiovascular Cardiovascular exam: Present: RRR, 15, 16 - Abdomen Abdomen general surgery: Present: bowel sounds present, soft, non tender - Incision Incision: Present: clean and dry, intact - Psychiatric Psychiatric general surgery: Present: appropriate, oriented to person, oriented to place, oriented to time, speech is normal, memory intact Date of admission: 05/26/16 12:00 Primary care physician: PCP NO Discharging clinician: Yan Robin Anticipated date of discharge: 06/01/16 - Patient Status Disposition: Home, Self-Care Condition: Good Functional capacity at discharge: independent ambulation Overall status at discharge: patient is progressing back to baseline - Discharge Instructions Follow Up With: NO,PCP [Primary Care Provider] - Yan Robin MD [Partnered Physician] - - Diet and Activity Activity: other (Do not lift more than 20 pounds until seen in clinic. Do not return to work until seen in clinic. Regular diet.) Diet: advance to your usual diet - Hospital Course Hospital course: Mr. Guerra is a 45 year old male 2 had 75 cm of infarcted small bowel. This was primarily resected. He had an unremarkable postoperative course and is now tolerating regular diet. He is ready for discharge home. - Time Spent with Patient Total time spent providing and/or coordinating discharge services: Less than 30 minutes Labs on day of discharge: Labs from last 24 hours 06/01/16 05/31/16 05/31/16 06:57 20:25 17:04 POC Glucose 91 H 93 H 102 H 05/31/16 11:38 POC Glucose 104 H
== END 2016-06-01 08:56 | disposition home or self-care (01) | DRG 329 ==
LOC: 3ANU
PROVIDERS: ADMIT Surgery; ATTEND Surgery
PROC: GENAPPY (ICD-10-PCS; 2016-05-26 13:30)